=== PATIENT | male | born 2000 | race Caucasian/White ===

== ENCOUNTER 2019-12-03 14:42 | Emergency (ER) | payer OTHER, BC ==
[2019-12-03] MEDS ORDERED: Sodium Chloride 0.9% 10 ML Syringe FLUSH PRN (14:50)
[2019-12-03] MEDS ORDERED: ceFAZolin 1 GM Vial IVPUSH ONE (14:50)
[2019-12-03] MEDS ORDERED: Ondansetron 4 MG/2 ML SDV IVPUSH ONE (14:50)
[2019-12-03] MEDS ORDERED: Ondansetron 4 MG/2 ML SDV ONE (14:59)
[2019-12-03] MEDS ORDERED: fentaNYL 100 MCG/2 ML SDV ONE (14:59)
[2019-12-03 15:08] LABS: PTT,PARTIAL THROMBOPLSTIN TIME 22.1 SEC (25.6-32.8)
--- NOTE | 2019-12-03 15:10 | EDM.PDOC ---
ED HPI GENERAL MEDICAL PROBLEM - General Stated Complaint: TRAMA Time Seen by Provider: 12/03/19 14:42 Source of Information: Reports: Patient, EMS History Limitations: Reports: No Limitations - History of Present Illness INITIAL COMMENTS - FREE TEXT/NARRATIVE: Patient comes emergency department today from the [facility] due to an injury to his right neck and jaw. A trauma code was activated prior to arrival in the emergency department as well as [facility] on the scene due to the concerns of a blunt force trauma injury to the neck and jaw with a large amount of bleeding on the scene. On arrival the patient is on a backboard without a c-collar. He complains of an injury to his right neck and jaw. He is unsure of what really happened. According to EMS per bystanders the patient was working under a tractor when a hydraulic reba or cylinder released striking him on the right lateral neck and jaw. It struck him in the neck throwing him backwards where he struck his head as well on a piece of machinery. He had a very brief loss of consciousness. There was large amount of bleeding on the scene. Direct pressure was applied by EMS. The patient was repeating questions over and over and does not recall the incident. His last tetanus shot he is unaware of. Does complain of pain to the posterior aspect of his head. No visual disturbances. He denies any difficulty swallowing or breathing. No change in his voice. No other injury other than to his right neck. He denies any posterior neck pain. No paresthesias of his upper or lower extremities. No change in the functionality of his upper or lower extremities. He denies any nausea or vomiting. No chest pain or shortness of breath or difficulty breathing. No back pain. No other injuries other than the isolated injury to his right lateral neck and jaw. Review of Systems - Review of Systems Review Of Systems: Comprehensive ROS is negative, except as noted in HPI. ED EXAM, GENERAL - Physical Exam Exam: See Below Free Text/Narrative:: Patient is alert and oriented x3. The only question that he is repeating he keeps asking for water because he says his mouth is really dry no other questions are repeated. Exam Limited By: No Limitations General Appearance: Alert, WD/WN, No Apparent Distress Eye Exam: Bilateral Eye: EOMI, Normal Inspection, PERRL Ears: Normal External Exam, Normal Canal, Normal TMs Ear Exam: Bilateral Ear: Auricle Normal, Canal Normal Nose: Normal Inspection, Normal Mucosa Throat/Mouth: Normal Inspection, Normal Lips, Normal Teeth, Normal Gums, Normal Oropharynx, Normal Voice, No Airway Compromise Head: Atraumatic, Normocephalic. No: Facial Swelling, Facial Tenderness, Sinus Tenderness Neck: Supple, Other (Just below the right angle of the jaw there is a rather large soft tissue defect that extends into the muscle in the neck. There is no active bleeding at this time on arrival. This is a full-thickness blunt force injury. There is no subcutaneous emphysema. There are deep structures of the neck that are identified. Palpation of the posterior neck does not elicit any midline tenderness. C-collar was placed.). No: Tender Lateral, Tender Midline Respiratory/Chest: No Respiratory Distress, Lungs Clear, Normal Breath Sounds, No Accessory Muscle Use, Chest Non-Tender, Other (Atraumatic no subcutaneous emphysema) Cardiovascular: Normal Peripheral Pulses, Regular Rate, Rhythm, No Edema Peripheral Pulses: 2+: Carotid (L), Carotid (R), Radial (L), Radial (R) GI/Abdominal: Normal Bowel Sounds, Soft, Non-Tender (Male) Exam: Deferred Rectal (Males) Exam: Deferred Back Exam: Normal Inspection (Patient was logrolled with C-spine precaution. Palpation on the posterior midline spine does not elicit any bony deformity step-offs or midline tenderness. There is no other signs of trauma to the posterior.), Full Range of Motion Extremities: Normal Inspection, Normal Range of Motion, Non-Tender, No Pedal Edema, Normal Capillary Refill Neurological: Alert, Oriented, CN II-XII Intact, Normal Cognition, Normal Gait, No Motor/Sensory Deficits Psychiatric: Normal Affect, Normal Mood Skin Exam: Dry, Intact, Cool, Pallor Course - Orders/Labs/Meds Orders: Active Orders 24 hr Category Date Time Status Peripheral IV Insertion Adult [OM.PC] Stat Oth 12/03/19 14:50 Ordered Labs: Laboratory Tests 12/03/19 12/03/19 12/03/19 Range/Units 14:38 14:38 14:38 WBC 9.2 (4.0-10.0) x10^3/uL RBC 4.47 L (4.5-6.0) x10^6/uL Hgb 13.8 L (14.0-18.0) g/dL Hct 38.4 L (40.0-52.0) % MCV 85.9 (78.0-93.0) fL MCH 30.9 (26.0-32.0) pg MCHC 35.9 (32.0-36.0) g/dL RDW Coeff of [place] 11.7 (10.0-15.0) % Plt Count 275 (130-400) x10^3/uL Neut % (Auto) 53.6 (50.0-80.0) % Lymph % (Auto) 35.1 (25.0-50.0) % [place] % (Auto) 10.1 (2.0-11.0) % Eos % (Auto) 1.0 (0.0-4.0) % Baso % (Auto) 0.2 (0.2-1.2) % PT 10.4 (9.5-12.3) SEC INR 1.0 L (2.0-3.5) APTT 22.1 L (25.6-32.8) SEC Sodium 142 (136-145) mmol/L Potassium 2.8 L* (3.5-5.1) mmol/L Chloride 103 (98-107) mmol/L Carbon Dioxide 29 (21-32) mmol/L Anion Gap 12.8 (10-20) mmol/L BUN 17 (7-18) mg/dL Creatinine 1.1 (0.70-1.30) mg/dL Est Cr Clr Drug Dosing TNP Estimated GFR (MDRD) > 60 Glucose 147 H (74-106) mg/dL Lactic Acid (0.4-2.0) mmol/L Calcium 8.6 (8.5-10.1) mg/dL Corrected Calcium 8.60 (8.5-10.1) mg/dL Total Bilirubin 0.5 (0.2-1.0) mg/dL AST 76 H (15-37) U/L ALT 86 H (16-63) U/L Alkaline Phosphatase 59 (46-116) U/L Total Protein 6.9 (6.4-8.2) g/dL Albumin 4.0 (3.4-5.0) g/dL Globulin 2.9 Albumin/Globulin Ratio 1.38 Ethyl Alcohol < 3 (0-3) mg/dL 12/03/19 Range/Units 14:38 WBC (4.0-10.0) x10^3/uL RBC (4.5-6.0) x10^6/uL Hgb (14.0-18.0) g/dL Hct (40.0-52.0) % MCV (78.0-93.0) fL MCH (26.0-32.0) pg MCHC (32.0-36.0) g/dL RDW Coeff of [place] (10.0-15.0) % Plt Count (130-400) x10^3/uL Neut % (Auto) (50.0-80.0) % Lymph % (Auto) (25.0-50.0) % [place] % (Auto) (2.0-11.0) % Eos % (Auto) (0.0-4.0) % Baso % (Auto) (0.2-1.2) % PT (9.5-12.3) SEC INR (2.0-3.5) APTT (25.6-32.8) SEC Sodium (136-145) mmol/L Potassium (3.5-5.1) mmol/L Chloride (98-107) mmol/L Carbon Dioxide (21-32) mmol/L Anion Gap (10-20) mmol/L BUN (7-18) mg/dL Creatinine (0.70-1.30) mg/dL Est Cr Clr Drug Dosing Estimated GFR (MDRD) Glucose (74-106) mg/dL Lactic Acid 2.6 H* (0.4-2.0) mmol/L Calcium (8.5-10.1) mg/dL Corrected Calcium (8.5-10.1) mg/dL Total Bilirubin (0.2-1.0) mg/dL AST (15-37) U/L ALT (16-63) U/L Alkaline Phosphatase (46-116) U/L Total Protein (6.4-8.2) g/dL Albumin (3.4-5.0) g/dL Globulin Albumin/Globulin Ratio Ethyl Alcohol (0-3) mg/dL Meds: Medications Discontinued Medications Generic Name Dose Route Start Last Admin Trade Name Freq PRN Reason Stop Dose Admin Cefazolin Sodium 2 gm 12/03/19 14:50 Ancef IVPUSH 12/03/19 14:51 ONETIME ONE Fentanyl Confirm 12/03/19 14:59 Sublimaze Administered 12/03/19 15:00 Dose 100 mcg .ROUTE .STK-MED ONE Ondansetron HCl 4 mg 12/03/19 14:50 Zofran IVPUSH 12/03/19 14:51 ONETIME ONE Ondansetron HCl Confirm 12/03/19 14:59 Zofran Administered 12/03/19 15:00 Dose 4 mg .ROUTE .STK-MED ONE Sodium Chloride 10 ml 12/03/19 14:50 Saline Flush FLUSH ASDIRECTED PRN Keep Vein Open - Re-Assessments/Exams Free Text/Narrative Re-Assessment/Exam: 12/03/19 18:40 As previously stated a trauma code was activated prior to the patient's arrival and the trauma team was present on the patient's arrival. [facility] was also dispatched prior to the patient's arrival. Chest x-ray per radiology shows no acute finding or no subcutaneous air. Direct pressure dressing was placed to the neck and a c-collar was placed as well due to the mechanism of injury although he denies any neck pain on palpation he does have a distracting injury to his neck. Tetanus was verified as up to date on line. 2 grams of ancef. I called and spoke with Dr. Patterson at [facility] in [place]. HPI ER COURSE findings and concerns were relayed to him. He accepted the patient in transfer. He was never hypotensive or overtly tachycardic during his stay. His care was transfered to [facility]. He was comfortable with this plan and his questions answered. Departure - Departure Time of Disposition: 14:50 Disposition: DC/Tfer to [facility] 02 Clinical Impression: Neck soft tissue injury Qualifiers: Encounter type: initial encounter Qualified Code(s): S19.9XXA - Unspecified injury of neck, initial encounter - Discharge Information Referrals: PCP,Unknown [Primary Care Provider] - Forms: Interfacility Transfer EMTALA - My Orders Last 24 Hours: My Active Orders 12/03/19 14:50 Peripheral IV Insertion Adult [OM.PC] Stat - Assessment/Plan Last 24 Hours: My Active Orders 12/03/19 14:50 Peripheral IV Insertion Adult [OM.PC] Stat Assessment:: Blunt force open traumatic injury to the soft tissues and deep structures of the left neck and jaw. Trauma team activation.
--- NOTE | 2019-12-03 15:11 | CR ---
[id number] RAD/RAD Chest PA or AP 1V EXAM: SINGLE VIEW CHEST. INDICATION: TRAUMA COMPARISON: NO PREVIOUS SIMILAR EXAM IS AVAILABLE FINDINGS: The lungs are clear There is no pneumothorax The cardiac silhouette is also normal IMPRESSION: NO ACUTE PROCESS Favio Espinoza MD 12/03/19 0532 Thank you for allowing us to participate in the care of your patient.
[2019-12-03 15:20] LABS: ANION GAP 12.8 mmol/L (10-20); CHLORIDE,CL 103 mmol/L (98-107); SODIUM,NA 142 mmol/L (136-145)
== END 2019-12-03 15:23 | disposition short-term general hospital (02) ==
LOC: VM.ED 14:42
DX: S19.9XXA Unspecified injury of neck, initial encounter (principal); W22.8XXA Striking against or struck by other objects, initial encounter
CPT/HCPCS: 71045; 80053; 80307; 83605; 85025; 85610; 85730; 96374; 96375; 99285; J0690; J2405; J3010; 36415